=== PATIENT | male | born 1995 | race Caucasian/White ===

== ENCOUNTER 2023-01-10 18:59 | Emergency (ER) | payer BC, SELFPAY ==
[2023-01-10 19:05] VITALS: BP 166/100; PULSE 120; RESP 17; TEMP 37.1; O2SAT 98; BMI 24.6
--- NOTE | 2023-01-10 19:07 | ED_ITS ---
HPI - Extremity Injury (Lower) General: Stated Complaint: cut on left leg Time Seen by Provider: 01/10/23 19:07 History of Present Illness: 27-year-old male patient comes in today with injury to the left lateral knee. Patient was using a chainsaw and it kicked back on him causing a superficial laceration to the left lateral knee. Patient cannot recall his last tetanus. Patient appears nontoxic. Patient appears in mild pain. Patient reports no chronic medical problems. Review of Systems General: Reports: 10 or more systems reviewed and unremarkable except in HPI and below Musc: Reports: extremity pain Skin/Breast: Reports: new lesions Physical Exam Const: COMMON NORMALS: alert HENMT: COMMON NORMALS: normocephalic HEAD & SCALP: normocephalic Neck/C-Spine: COMMON NORMALS: full ROM Resp: COMMON NORMALS: normal respiratory effort and clear to auscultation bilaterally AUSCULTATION: clear to auscultation bilaterally Cardio: COMMON NORMALS: regular rate and regular rhythm RATE: regular rate RHYTHM: regular rhythm Extremity: LEFT LOWER EXTREMITY: Yes knee joint (Distal laceration 4 cm) Neuro: SENSORIUM/ORIENTATION: Yes alert Skin: TRAUMA: laceration (Left lateral knee) linear Procedures Laceration Laceration 1: Site: lower extremity Side (If applicable): left Size (cm): 4 Description: linear Depth: simple, single layer Local Anesthetic: lidocaine 1% Amount of anesthesia used (mL): 5 Pre-repair: wound explored and irrigated extensively Skin layer closed with: nylon Size (cm): 3-0 Number of sutures: 6 Course Vital Signs: Vital signs: Vital Signs Temperature 98.7 F 01/10/23 19:05 Pulse Rate 95 01/10/23 19:19 Respiratory Rate 16 01/10/23 19:19 Blood Pressure 166/100 01/10/23 19:19 Pulse Oximetry 97 01/10/23 19:19 Oxygen Delivery Me thod Room Air 01/10/23 19:19 MDM - Extremity Injury (Lower) Medical Decision Making Patient comes in for a laceration to the left lateral knee. On exam patient has a 4 cm laceration to the lateral left knee distal part of the superficial and and just through the first layer of skin. No foreign bodies were noted. No fracture was noted. Wound was cleaned thoroughly and sutured. Patient tolerated well. Differential diagnosis includes not limited to laceration, foreign body, fracture, need for prophylaxis tetanus. Patient's tetanus was updated. Wound was cleaned thoroughly without any signs of fracture or foreign bodies. Patient tolerated procedure well. Postprocedure care and instructions was given to patient. Patient reported understanding agreed to plan. No radiology studies performed this visit Discharge Plan Discharge Patient Disposition: Home Clinical Impression: Laceration of skin of left knee Qualifiers: Encounter type: initial encounter Qualified Code(s): S81.012A - Laceration without foreign body, left knee, initial encounter Condition: Stable Prescriptions: New cephalexin 500 mg capsule 500 mg PO TID 7 Days Qty: 21 0RF Discharge Orders: Discharge ED (Routine); Ordered 01/10/23 Ordered By: Logan Galvez Referrals: Ryder Garg Jr, MD [Staff Physician] - Discharge Diet: Usual diet Discharge Activity: Increase activity as tolerated Patient Instructions: Care For Your Stitches (ED) Activity Restrictions/Additional Instructions: It is very important keep the wound clean and dry for the next 48 hours. After that she can wash wound gently with mild soap and water, cover to keep clean. Take antibiotic cephalexin 500 mg 1 tablet 3 times a day for the next 7 days. Sutures need to come out in 10 to 14 days. Monitor for signs of infection such as increasing redness, high fever, or severe pain. Return to ER for worsening symptoms. Follow-up with primary care in 1 week. Coding Level of Care Code ED M[employer] Spot Picker for Niyah Castaneda
[2023-01-10 19:19] VITALS: BP 166/100; PULSE 95; RESP 16; O2SAT 97
[2023-01-10] MEDS: tetanus-dipt-pertussis 0.5 mL SDV IM (19:38)
[2023-01-10 19:52] VITALS: BP 166/100; PULSE 78; RESP 16; O2SAT 96
== END 2023-01-10 19:53 | disposition home or self-care (01) ==
PROVIDERS: Emergency Provider Nurse Practitioner Family
DX: S81.012A Laceration without foreign body, left knee, initial encounter (principal); W29.3XXA Contact with powered garden and outdoor hand tools and machinery, initial encounter; Z23 Encounter for immunization
CPT/HCPCS: 12002; 90471; 90715; 99283